=== PATIENT | male | born 1950 | race Caucasian/White ===

== ENCOUNTER 2018-04-29 07:12 | Outpatient (CLI) | payer MEDICARE, MEDICAID | END 2018-04-29 07:13 | disposition home or self-care (01) | LOC: CARDIO 07:12 | DX: E11.9 Type 2 diabetes mellitus without complications (principal); M19.90 Unspecified osteoarthritis, unspecified site; I10 Essential (primary) hypertension ==

== ENCOUNTER 2018-05-18 10:01 | Outpatient (CLI) | payer MEDICARE, MEDICAID | END 2018-05-18 10:02 | disposition home or self-care (01) | LOC: RAD 10:01 ==